=== PATIENT | male | born 1995 | race Caucasian/White ===

== ENCOUNTER 2017-04-15 19:11 | Emergency (ER) | payer OTHER ==
[~2017-04-15] VITALS: Ht 180.3 cm; Wt 123.2 kg
[~2017-04-15 19:11] MED LIST: OTC COUGH MEDS
[2017-04-15 22:00] VITALS: BP 128/78
[2017-04-15] MEDS ORDERED: HYDROCODONE/ACETAMINOPHEN 5-325 MG TABLET PO ONE (22:00)
== END 2017-04-15 22:33 | disposition home or self-care (01) ==
LOC: EMS 19:11
DX: S86.812A Strain of other muscle(s) and tendon(s) at lower leg level, left leg, initial encounter (principal); F17.210 Nicotine dependence, cigarettes, uncomplicated; X58.XXXA Exposure to other specified factors, initial encounter; Y93.89 Activity, other specified; Y92.89 Other specified places as the place of occurrence of the external cause; Y99.8 Other external cause status
CPT/HCPCS: 93971; 99284

== ENCOUNTER 2017-11-24 04:51 | Inpatient (IN) | payer MEDICAID, OTHER ==
[~2017-11-24] VITALS: Ht 182.9 cm; Wt 120.6 kg
[2017-11-24] MEDS: HALOPERIDOL 5 MG TABLET PO PRN ×2 (06:12→20:07)
[2017-11-24 06:14] LABS: BASOPHILS % (AUTO) 1.1 % (0.0-2.0); EOSINOPHILS % (AUTO) 3.3 % (1.0-6.0); HEMATOCRIT 44.6 % (41-53); HEMOGLOBIN 14.8 g/dL (13.5-17.5); LYMPHOCYTES # (AUTO) 2.6 K/uL (1.0-4.8); LYMPHOCYTES % (AUTO) 33.6 % (22.0-44.0); MEAN CORPUSCULAR HEMOGLOBIN 26.4 pg (26.0-34.0); MEAN CORPUSCULAR HGB CONC 33.1 G/dL (31.0-37.0); MEAN CORPUSCULAR VOLUME 80 fL (80-100); MONOCYTES # (AUTO) 0.6 K/uL (0.1-1.0); NEUTROPHILS # (AUTO) 4.1 K/uL (1.8-7.7); PLATELET COUNT (AUTO) 180 K/uL (150-450); RED BLOOD CELL COUNT(AUTO) 5.59 MIL/uL (4.50-5.90); RED CELL DISTRIBUTION WIDTH 13.7 % (11.5-14.5)
[2017-11-24 06:35] LABS: ANION GAP 10 mmol/L (8-16); CALCIUM, TOTAL 8.4 mg/dL (8.8-10.5); CARBON DIOXIDE 26 mmol/L (22-29); CHLORIDE 108 mmol/L (98-107); CREATININE 0.81 mg/dL (0.60-1.30); GLOMERULAR FILTR. RATE CALC > 60 mL/min (>60); GLUCOSE,RANDOM 97 mg/dL (70-110); POTASSIUM 3.9 mmol/L (3.5-5.1); SODIUM SERUM 144 mmol/L (136-145); UREA NITROGEN, BLOOD 8 mg/dL (7-18)
[2017-11-24 06:41] LABS: ALANINE AMINOTRANSFERASE 52 U/L (12-78); ALBUMIN 3.8 g/dL (3.4-5.0); ALKALINE PHOSPHATASE 84 U/L (46-116); ASPARTATE AMINOTRANSFERASE 30 U/L (15-37); BILIRUBIN,TOTAL 0.1 mg/dL (0.1-1.0); TOTAL PROTEIN, SERUM 7.1 g/dL (6.4-8.2)
[2017-11-24 06:45] LABS: AMPHET/METH SCREEN,URINE NEGATIVE (NEGATIVE); BARBITURATE SCREEN, URINE NEGATIVE (NEGATIVE); BENZODIAZEPINES SCREEN,URINE POSITIVE (NEGATIVE); CANNABINOID SCREEN,URINE POSITIVE (NEGATIVE); COCAINE SCREEN,URINE NEGATIVE (NEGATIVE); METHADONE SCREEN, URINE NEGATIVE (NEGATIVE); OPIATE SCREEN,URINE NEGATIVE (NEGATIVE)
[2017-11-24 06:46] LABS: PHENCYCLIDINE SCREEN,URINE NEGATIVE (NEGATIVE)
[2017-11-24 14:32] VITALS: BP 110/72
[2017-11-24] MEDS ORDERED: INFLUENZA VIRUS VACCINE QVS 2017-18 (3YR+)/PF 60 MCG/0.5 ML SYRINGE IM ONE (15:00)
[2017-11-24] MEDS: LORazepam 2 MG TABLET PO PRN (20:07)
[2017-11-24 20:09] VITALS: BP 106/76
[2017-11-25 05:33] LABS: CHOL/HDL RATIO 2.7 (4.2-7.3)
[2017-11-25 14:41] VITALS: BP 135/78
[2017-11-25] MEDS: LORazepam 2 MG TABLET PO PRN ×2 (14:44→18:40)
[2017-11-25 20:00] VITALS: BP 140/80
[2017-11-25] MEDS ORDERED: IBUPROFEN 400 MG TABLET PO PRN (20:30)
[2017-11-25] MEDS ORDERED: ACETAMINOPHEN 325 MG TABLET PO PRN (20:30)
[2017-11-25] MEDS: SERTRALINE HCL 50 MG TABLET PO SCH (21:16)
[2017-11-25] MEDS: ZOLPIDEM TARTRATE 10 MG TABLET PO PRN (21:16)
[2017-11-26 00:08] VITALS: BP 140/85
[2017-11-26] MEDS: LORazepam 2 MG TABLET PO PRN ×4 (00:10→22:03)
[2017-11-26 08:10] VITALS: BP 128/67
[2017-11-26 08:33] LABS: HEMOGLOBIN A1C 4.9 % (4.5-6.2)
[2017-11-26 08:52] LABS: THYROID STIMULATING HORMONE 3.78 uIU/mL (0.36-3.74)
[2017-11-26] MEDS ORDERED: INFLUENZA VIRUS VACCINE QVS 2017-18 (3YR+)/PF 60 MCG/0.5 ML SYRINGE IM ONE (15:15)
[2017-11-26 16:15] VITALS: BP 121/72
[2017-11-26] MEDS: ZOLPIDEM TARTRATE 10 MG TABLET PO PRN (20:32)
[2017-11-26] MEDS: HALOPERIDOL 5 MG TABLET PO PRN (20:32)
[2017-11-26] MEDS: SERTRALINE HCL 50 MG TABLET PO SCH (20:32)
[2017-11-27 00:09] VITALS: BP 111/63
[2017-11-27] MEDS: LORazepam 2 MG TABLET PO PRN ×2 (08:01→13:44)
[2017-11-27 08:10] VITALS: BP 117/78
[2017-11-27 16:00] VITALS: BP 120/88
[2017-11-27] MEDS: MIRTAZAPINE 15 MG TABLET PO SCH (20:02)
[2017-11-27] MEDS: HALOPERIDOL 5 MG TABLET PO PRN (20:02)
[2017-11-27] MEDS: ZOLPIDEM TARTRATE 10 MG TABLET PO PRN (21:05)
[2017-11-28 07:10] VITALS: BP 126/80
[2017-11-28 08:10] VITALS: BP 119/86
[2017-11-28] MEDS: HALOPERIDOL 5 MG TABLET PO PRN ×2 (09:48→13:57)
[2017-11-28 16:11] VITALS: BP 110/60
[2017-11-28] MEDS: MIRTAZAPINE 15 MG TABLET PO SCH (20:27)
[2017-11-28] MEDS: ZOLPIDEM TARTRATE 10 MG TABLET PO PRN (20:27)
[2017-11-29 05:13] VITALS: BP 108/64
[2017-11-29] MEDS: HALOPERIDOL 5 MG TABLET PO PRN ×2 (08:34→12:44)
[2017-11-29 08:44] VITALS: BP 107/57
[2017-11-29] MEDS ORDERED: MIRT15 PO (12:27)
== END 2017-11-29 14:20 | disposition home or self-care (01) | DRG 751 ==
LOC: EMS 04:51 → AHU 13:12 → B2S 11-25 15:54
PROVIDERS: ADMIT Psychiatry & Neurology Child & Adolescent Psychiatry; ATTEND Psychiatry & Neurology Child & Adolescent Psychiatry
PROC: 3E0234Z Introduction of Serum, Toxoid and Vaccine into Muscle, Percutaneous Approach (ICD-10-PCS; principal; 2017-11-24)
DX: F33.2 Major depressive disorder, recurrent severe without psychotic features (principal); F29 Unspecified psychosis not due to a substance or known physiological condition; R45.851 Suicidal ideations; F12.10 Cannabis abuse, uncomplicated; F10.10 Alcohol abuse, uncomplicated; F41.9 Anxiety disorder, unspecified; G47.00 Insomnia, unspecified; F17.210 Nicotine dependence, cigarettes, uncomplicated; Z23 Encounter for immunization
CPT/HCPCS: 83036; 84443; 90471; 99285; G0480

== ENCOUNTER 2018-01-08 13:40 | Emergency (ER) | payer MEDICAID, OTHER ==
[~2018-01-08] VITALS: Ht 180.3 cm; Wt 118.0 kg
[~2018-01-08 13:40] MED LIST changes: +MIRT15 PO; -OTC COUGH MEDS
[2018-01-08] MEDS ORDERED: IBUPROFEN 800 MG TABLET PO ONE (14:45)
[2018-01-08] MEDS ORDERED: METHOCARBAMOL 500 MG TABLET PO ONE (14:45)
[2018-01-08 14:58] VITALS: BP 140/80
== END 2018-01-08 15:08 | disposition home or self-care (01) ==
LOC: EMS 13:41
DX: M54.2 Cervicalgia (principal); M54.6 Pain in thoracic spine; R03.0 Elevated blood-pressure reading, without diagnosis of hypertension; F17.210 Nicotine dependence, cigarettes, uncomplicated; V49.40XA Driver injured in collision with unspecified motor vehicles in traffic accident, initial encounter; Y93.89 Activity, other specified; Y92.89 Other specified places as the place of occurrence of the external cause; Y99.8 Other external cause status
CPT/HCPCS: 99283

== ENCOUNTER 2020-05-08 03:59 | Emergency (ER) | payer OTHER ==
[~2020-05-08] VITALS: Ht 185.4 cm; Wt 115.9 kg
[2020-05-08] MEDS ORDERED: IBUPROFEN 600 MG TABLET PO ONE (04:15)
[2020-05-08] MEDS ORDERED: KETOROLAC TROMETHAMINE 30 MG/ML VIAL IVP ONE (05:15)
[2020-05-08] MEDS ORDERED: FentaNYL CITRATE-PF 100 MCG/2 ML VIAL ONE (05:55)
[2020-05-08] MEDS ORDERED: FentaNYL CITRATE-PF 100 MCG/2 ML VIAL IVP ONE (06:00)
[2020-05-08 10:00] VITALS: BP 112/67
== END 2020-05-08 10:43 | disposition home or self-care (01) ==
LOC: EMS 03:59
DX: S82.61XA Displaced fracture of lateral malleolus of right fibula, initial encounter for closed fracture (principal); F10.129 Alcohol abuse with intoxication, unspecified; F17.210 Nicotine dependence, cigarettes, uncomplicated; X50.1XXA Overexertion from prolonged static or awkward postures, initial encounter; Y93.89 Activity, other specified; Y92.89 Other specified places as the place of occurrence of the external cause; Y99.8 Other external cause status; Y90.9 Presence of alcohol in blood, level not specified
CPT/HCPCS: 27818; 73590; 73610; 73630; 96374; 99285; J1885; J3010

== ENCOUNTER 2022-04-28 22:34 | Inpatient (IN) | payer MEDICAID, OTHER ==
[~2022-04-28] VITALS: Ht 185.4 cm; Wt 130.2 kg
[2022-04-28 23:15] LABS: BASOPHILS % (AUTO) 1.1 % (0.0-2.0); EOSINOPHILS % (AUTO) 1.5 % (1.0-6.0); HEMATOCRIT 43.2 % (41-53); HEMOGLOBIN 14.1 g/dL (13.5-17.5); LYMPHOCYTES # (AUTO) 2.3 K/uL (1.0-4.8); LYMPHOCYTES % (AUTO) 25.2 % (22.0-44.0); MEAN CORPUSCULAR HEMOGLOBIN 25.7 pg (26.0-34.0); MEAN CORPUSCULAR HGB CONC 32.7 G/dL (31.0-37.0); MEAN CORPUSCULAR VOLUME 79 fL (80-100); MONOCYTES # (AUTO) 1.1 K/uL (0.1-1.0); MONOCYTES % (AUTO) 12.5 % (2.0-9.0); NEUTROPHILS # (AUTO) 5.5 K/uL (1.8-7.7); NEUTROPHILS % (AUTO) 59.7 % (40.0-70.0); PLATELET COUNT (AUTO) 211 K/uL (150-450); RED CELL DISTRIBUTION WIDTH 14.1 % (11.5-14.5)
[2022-04-28 23:24] LABS: ANION GAP 11 mmol/L (8-16); CARBON DIOXIDE 26 mmol/L (22-29); CHLORIDE 104 mmol/L (98-107); CREATININE 0.93 mg/dL (0.60-1.30); GLUCOSE,RANDOM 96 mg/dL (70-110); POTASSIUM 3.2 mmol/L (3.5-5.1); SODIUM SERUM 141 mmol/L (136-145); UREA NITROGEN, BLOOD 8 mg/dL (7-18)
[2022-04-28 23:25] LABS: GLOMERULAR FILTR. RATE CALC > 60 mL/min (>60)
[2022-04-28 23:28] LABS: INR 1.1 (0.9-1.1); PROTHROMBIN TIME 11.6 SEC (9.4-11.6)
[2022-04-28 23:29] LABS: ALANINE AMINOTRANSFERASE 75 U/L (12-78); ALBUMIN 4.2 g/dL (3.4-5.0); ALKALINE PHOSPHATASE 119 U/L (46-116); ASPARTATE AMINOTRANSFERASE 32 U/L (15-37); BILIRUBIN,TOTAL 0.5 mg/dL (0.1-1.0); TOTAL PROTEIN, SERUM 7.5 g/dL (6.4-8.2)
[2022-04-28 23:30] LABS: ACETAMINOPHEN < 2 mcg/mL (10-30)
[2022-04-29 00:30] LABS: APPEARANCE,URINE CLEAR (CLEAR); BILIRUBIN,URINE NEGATIVE (NEGATIVE); GLUCOSE, URINE (UA) NEGATIVE (NEGATIVE); KETONES,URINE NEGATIVE (NEGATIVE); LEUKOCYTE ESTERASE ,URINE NEGATIVE (NEGATIVE); NITRATE,URINE NEGATIVE (NEGATIVE); OCCULT BLOOD,URINE NEGATIVE (NEGATIVE); PROTEIN,URINE 30-70 mg/dL (NEGATIVE); SPECIFIC GRAVITIY, URINE 1.031 (1.003-1.030); UROBILINOGEN,URINE <=1.0 mg/dL (<=1.0)
[2022-04-29] MEDS ORDERED: POTASSIUM CHLORIDE 20 MEQ ER TABLET PO ONE (00:30)
[2022-04-29 00:37] LABS: AMPHET/METH SCREEN,URINE POSITIVE (NEGATIVE); BARBITURATE SCREEN, URINE NEGATIVE (NEGATIVE); BENZODIAZEPINES SCREEN,URINE NEGATIVE (NEGATIVE); CANNABINOID SCREEN,URINE POSITIVE (NEGATIVE); COCAINE SCREEN,URINE NEGATIVE (NEGATIVE); METHADONE SCREEN, URINE NEGATIVE (NEGATIVE); OPIATE SCREEN,URINE NEGATIVE (NEGATIVE)
[2022-04-29 00:38] LABS: PHENCYCLIDINE SCREEN,URINE NEGATIVE (NEGATIVE)
[2022-04-29 01:05] LABS: COVID AG,FIA SOURCE NASAL SWAB
[2022-04-29] MEDS ORDERED: HALOPERIDOL 5 MG TABLET PO PRN (01:30)
[2022-04-29] MEDS: LORazepam 2 MG TABLET PO PRN ×2 (01:55→10:59)
[2022-04-29] MEDS: ZOLPIDEM TARTRATE 10 MG TABLET PO PRN (02:59)
[2022-04-29] MEDS ORDERED: GuaiFENesin/D-METHORPHAN [SUGAR-FREE] 200-20MG/10 ML SYRUP UDCUP PO PRN (07:00)
[2022-04-29] MEDS ORDERED: NICOTINE 14 MG/24 HOUR PATCH TD PRN (07:00)
[2022-04-29] MEDS ORDERED: ONDANSETRON HCL 4 MG TABLET PO PRN (07:00)
[2022-04-29] MEDS ORDERED: DOCUSATE SODIUM 100 MG CAPSULE PO PRN (07:00)
[2022-04-29] MEDS ORDERED: MAGNESIUM HYDROXIDE SUSPENSION 30 ML UDCUP PO PRN (07:00)
[2022-04-29] MEDS ORDERED: ACETAMINOPHEN 325 MG TABLET PO PRN (07:00)
[2022-04-29] MEDS ORDERED: ALBUTEROL SULFATE HFA 90 MCG/PUFF 8 GM INHALER IH PRN (07:00)
[2022-04-29] MEDS ORDERED: CloNIDine HCL 0.1 MG TABLET PO PRN (07:00)
[2022-04-29] MEDS ORDERED: PETROLATUM,WHITE 28 GM JELLY TP PRN (07:00)
[2022-04-29] MEDS ORDERED: IBUPROFEN 400 MG TABLET PO PRN (07:00)
[2022-04-29] MEDS ORDERED: MAG HYDROX/AL HYDROX/SIMETH ES 30 ML SUSPENSION UDCUP PO PRN (07:00)
[2022-04-29] MEDS ORDERED: LOPERAMIDE HCL 2 MG CAPSULE PO PRN (07:00)
[2022-04-29 13:27] VITALS: BP 120/89
[2022-04-30] MEDS: ZOLPIDEM TARTRATE 10 MG TABLET PO PRN ×2 (01:17→20:02)
[2022-04-30] MEDS: LORazepam 2 MG TABLET PO PRN ×2 (01:58→11:11)
[2022-04-30 08:23] VITALS: BP 102/70
[2022-04-30 20:23] VITALS: BP 118/63
[2022-04-30] MEDS ORDERED: MIRTAZAPINE 15 MG TABLET PO SCH (21:00)
[2022-04-30] MEDS ORDERED: TraZODone HCL 150 MG TABLET PO SCH (21:00)
[2022-05-01 08:39] VITALS: BP 109/76
[2022-05-01] MEDS ORDERED: MIRT-89 PO ×2 (11:39→11:44)
[2022-05-01] MEDS ORDERED: TRAZ150T80 PO (11:39)
[2022-05-01] MEDS ORDERED: TRAZ-283 PO (11:44)
== END 2022-05-01 12:00 | disposition home or self-care (01) | DRG 751 ==
LOC: EMS 22:34 → B2S 04-29 06:03
PROVIDERS: ADMIT Psychiatry & Neurology Child & Adolescent Psychiatry; ATTEND Psychiatry & Neurology Child & Adolescent Psychiatry
DX: F33.2 Major depressive disorder, recurrent severe without psychotic features (principal); E87.6 Hypokalemia; F11.10 Opioid abuse, uncomplicated; F41.9 Anxiety disorder, unspecified; F10.10 Alcohol abuse, uncomplicated; Z20.822 Contact with and (suspected) exposure to COVID-19; T42.4X1A Poisoning by benzodiazepines, accidental (unintentional), initial encounter; T42.6X1A Poisoning by other antiepileptic and sedative-hypnotic drugs, accidental (unintentional), initial encounter; Z87.891 Personal history of nicotine dependence; Y92.89 Other specified places as the place of occurrence of the external cause; Z79.899 Other long term (current) drug therapy
CPT/HCPCS: 80053; 81003; 85025; 85610; 85730; 93005; 99285; G0480; G0481

== ENCOUNTER 2025-06-23 11:10 | Emergency (ER) | payer MEDICAID, OTHER ==
[~2025-06-23] VITALS: Ht 180.3 cm; Wt 124.0 kg
[~2025-06-23 11:10] MED LIST changes: +MIRT-89 PO; -MIRT15 PO; +TRAZ-283 PO; +TRAZ150T80 PO
[2025-06-23 11:27] VITALS: TEMP 98.3
[2025-06-23] MEDS: FAMOTIDINE 20 MG TABLET PO ONE (13:28)
[2025-06-23 16:26] VITALS: BP 104/64; PULSE 72; RESP 18; O2SAT 99
== END 2025-06-23 17:02 ==
LOC: EMS 11:16
DX: L50.9 Urticaria, unspecified (principal); F32.A Depression, unspecified; F17.210 Nicotine dependence, cigarettes, uncomplicated; F15.90 Other stimulant use, unspecified, uncomplicated; Z79.899 Other long term (current) drug therapy
CPT/HCPCS: 99283; J8540